=== PATIENT | male | born 1995 | race Native Hawaiian/Other Pacific Islander ===

== ENCOUNTER → 2017-08-04 20:47 | Outpatient (CLI) | payer BC, OTHER | END | disposition home or self-care (01) | LOC: AMB 20:47 | DX: Z04.1 Encounter for examination and observation following transport accident (principal) ==

== ENCOUNTER 2017-08-04 21:23 | Emergency (ER) | payer BC, OTHER ==
[~2017-08-04] VITALS: Ht 182.9 cm; Wt 108.9 kg
[2017-08-05 00:24] VITALS: BP 130/84; TEMP 98.8
== END 2017-08-05 00:25 | disposition home or self-care (01) ==
LOC: ED 21:23
DX: S39.012A Strain of muscle, fascia and tendon of lower back, initial encounter (principal); V43.52XA Car driver injured in collision with other type car in traffic accident, initial encounter
CPT/HCPCS: 99283

== ENCOUNTER → 2018-04-24 12:56 | Outpatient (CLI) | payer BC, OTHER | END | disposition home or self-care (01) | LOC: AMB 12:56 | DX: T67.0XXA Heatstroke and sunstroke, initial encounter (principal); X08.8XXA Exposure to other specified smoke, fire and flames, initial encounter; Y92.017 Garden or yard in single-family (private) house as the place of occurrence of the external cause; Y99.0 Civilian activity done for income or pay ==

== ENCOUNTER 2018-06-24 11:31 | Outpatient (CLI) | payer BC ==
[2018-06-24 12:30] LABS: PLATELET COUNT 213 K/uL (142-355)
[2018-06-24 12:34] LABS: POTASSIUM 4.5 mmol/L (3.6-5.2)
== END 2018-06-24 23:26 | disposition home or self-care (01) ==
LOC: LABW 11:31
PROVIDERS: Internal Medicine
DX: R19.7 Diarrhea, unspecified (principal); R10.84 Generalized abdominal pain
CPT/HCPCS: 36415; 80053; 81000; 82150; 82272; 83630; 83690; 85027; 87015; 87045; 87324; 87328; 87329; 87449; 87507; 87899

== ENCOUNTER → 2019-06-14 17:19 | Outpatient (CLI) | payer BC | END | disposition short-term general hospital (02) | LOC: AMB 17:19 | DX: M79.605 Pain in left leg (principal); M79.604 Pain in right leg; M54.5 Low back pain; S20.319A Abrasion of unspecified front wall of thorax, initial encounter; V86.99XA Unspecified occupant of other special all-terrain or other off-road motor vehicle injured in nontraffic accident, initial encounter; Y93.89 Activity, other specified; Y92.828 Other wilderness area as the place of occurrence of the external cause | CPT/HCPCS: A0425; A0427 ==

== ENCOUNTER 2019-06-14 17:29 | Emergency (ER) | payer BC ==
[~2019-06-14] VITALS: Ht 182.9 cm; Wt 108.9 kg
[2019-06-14 17:33] VITALS: BP 130/82; TEMP 98.2
[2019-06-14 18:04] LABS: PLATELET COUNT 232 K/uL (142-355)
[2019-06-14 18:12] LABS: POTASSIUM 3.8 mmol/L (3.6-5.2)
[2019-06-14 18:28] LABS: PARTIAL THROMBOPLASTIN TIME 23.3 SECONDS (24.5-33.6)
== END 2019-06-14 20:15 | disposition home or self-care (01) ==
LOC: ED 17:29
PROVIDERS: Hospitalist
PROC: 2W3MX1Z Immobilization of Left Lower Extremity using Splint (ICD-10-PCS; principal; 2019-06-14)
DX: M54.2 Cervicalgia (principal); M54.5 Low back pain; M25.562 Pain in left knee; V86.49XA Person injured while boarding or alighting from other special all-terrain or other off-road motor vehicle, initial encounter
CPT/HCPCS: 80053; 80307; 80320; 85027; 85610; 85730; 96360; 96361; 96375; 99284; J1885; J2270; J2405; Q9963

== ENCOUNTER 2019-06-22 10:27 | Outpatient (CLI) | payer BC | END 2019-06-22 23:18 | disposition home or self-care (01) | LOC: RAD 10:27 | DX: M79.604 Pain in right leg (principal); M79.605 Pain in left leg; V89.2XXA Person injured in unspecified motor-vehicle accident, traffic, initial encounter ==

== ENCOUNTER 2020-09-06 10:16 | Outpatient (CLI) | payer BC | END 2020-09-06 19:56 | disposition home or self-care (01) | LOC: RAD 10:16 | PROVIDERS: ATTEND Internal Medicine | DX: M54.2 Cervicalgia (principal) ==

== ENCOUNTER 2023-05-09 08:36 | Emergency (ER) | payer BC ==
[~2023-05-09] VITALS: Ht 182.9 cm; Wt 99.8 kg
[2023-05-09 08:42] VITALS: BP 121/80; TEMP 98.7
[2023-05-09 09:32] LABS: PLATELET COUNT 229 K/uL (142-355)
[2023-05-09 09:46] LABS: POTASSIUM 3.8 mmol/L (3.6-5.2)
== END 2023-05-09 11:29 | disposition home or self-care (01) ==
LOC: ED 08:36
PROVIDERS: Family Medicine
DX: R10.12 Left upper quadrant pain (principal); K21.9 Gastro-esophageal reflux disease without esophagitis; R19.7 Diarrhea, unspecified
CPT/HCPCS: 36415; 80053; 80307; 81002; 82150; 83605; 83690; 85027; 87040; 96360; 99284; J1885; Q9963